=== PATIENT | female | born 2000 | race African-American/Black ===

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

== ENCOUNTER → 2019-01-15 | Outpatient (REF) | payer OTHER ==
[~2019-01-15] MED LIST: CARV3.12 PO; ENAL2.5T PO
[2019-01-15 17:51] LABS: ALBUMIN 3.9 GM/DL (3.2-5.2); ALT/SGPT 16 U/L (12-78); BILIRUBIN,TOTAL 0.3 MG/DL (0.2-1.0); BLOOD UREA NITROGEN 6 MG/DL (7-18); CALCIUM LEVEL 9.3 MG/DL (8.5-10.1); CARBON DIOXIDE LEVEL 29 MEQ/L (21-32); CHLORIDE LEVEL 108 MEQ/L (98-107); CHOLESTEROL LEVEL 181 MG/DL (<200); CHOLESTEROL RISK RATIO 4.022 (<5); CREATININE FOR GFR 0.78 MG/DL (0.55-1.30); FREE T4 0.84 NG/DL (0.78-1.33); GLUCOSE, FASTING 81 MG/DL (70-100); HDL CHOLESTEROL 45 MG/DL (>40); LDL CHOLESTEROL 102 MG/DL (<100); NON-HDL-C 136 MG/DL; POTASSIUM SERUM 3.8 MEQ/L (3.5-5.1); SODIUM LEVEL 143 MEQ/L (136-145); TOTAL 25(OH) VITAMIN D 9.5 NG/ML (30.0-100.0); TOTAL PROTEIN 7.3 GM/DL (6.4-8.2); TRIGLYCERIDES LEVEL 171 MG/DL (<150)
[2019-01-15 18:05] LABS: BASO % 0.5 % (0.0-1.0); EOS # 0.1 10^3/uL (0.0-0.50); EOS % 1.1 % (0.0-3.0); HEMATOCRIT 38.6 % (36.0-47.0); HEMOGLOBIN 11.6 g/dl (12.0-15.5); LYMPH # 2.5 10^3/uL (1.5-6.5); LYMPH % 37.9 % (24.0-44.0); MEAN CORPUSCULAR HEMOGLOBIN 20.9 pg (27.0-33.0); MEAN CORPUSCULAR HGB CONC 30.1 g/dl (32.0-36.5); MEAN CORPUSCULAR VOLUME 69.5 fl (80.0-96.0); MONO # 0.3 10^3/uL (0.0-0.8); MONO % 4.5 % (0.0-5.0); NEUTROPHILS # 3.7 10^3/uL (1.8-7.7); NEUTROPHILS % 55.8 % (36.0-66.0); PLATELET COUNT, AUTOMATED 350 10^3/uL (150-450); RED BLOOD COUNT 5.55 10^6/uL (4.00-5.40); WHITE BLOOD COUNT 6.7 10^3/uL (4.0-10.0)
[2019-01-15 20:10] LABS: HEMOGLOBIN A1c 5.2 %
[2019-01-17 14:17] LABS: ANTINUCLEAR ANTIBODIES DIRECT Negative (Negative)
== END ==
LOC: M LAB REF 16:52
PROVIDERS: ATTEND Nurse Practitioner Adult Health
DX: Z13.9 Encounter for screening, unspecified (principal)

== ENCOUNTER 2019-12-17 14:49 | Emergency (ER) | payer OTHER ==
[~2019-12-17] VITALS: Ht 157.5 cm; Wt 75.7 kg
[~2019-12-17 14:49] MED LIST changes: +ENAL1TAB46 PO; -ENAL2.5T PO
[2019-12-17 16:35] LABS: BASO % 0.6 % (0.0-1.0); EOS % 0.4 % (0.0-3.0); HEMATOCRIT 36.4 % (36.0-47.0); HEMOGLOBIN 11.1 g/dl (12.0-15.5); LYMPH % 41.7 % (24.0-44.0); MEAN CORPUSCULAR HEMOGLOBIN 20.4 pg (27.0-33.0); MEAN CORPUSCULAR HGB CONC 30.5 g/dl (32.0-36.5); MONO # 0.3 10^3/uL (0.0-0.8); MONO % 4.7 % (0.0-5.0); NEUTROPHILS # 3.8 10^3/uL (1.5-8.5); NEUTROPHILS % 52.5 % (36.0-66.0); PLATELET COUNT, AUTOMATED 279 10^3/uL (150-450); RED BLOOD COUNT 5.43 10^6/uL (4.00-5.40); WHITE BLOOD COUNT 7.2 10^3/uL (4.0-10.0)
[2019-12-17 17:07] LABS: ALBUMIN 4.1 GM/DL (3.2-5.2); ALT/SGPT 15 U/L (12-78); BILIRUBIN,DIRECT 0.1 MG/DL (0.0-0.2); BILIRUBIN,TOTAL 0.4 MG/DL (0.2-1.0); CK-MB VALUE MASS 1.3 NG/ML (<3.6); CPK CREATINE PHOSPHOKINASE 157 U/L (26-192); FREE T4 0.91 NG/DL (0.78-1.33); LIPASE 90 U/L (73-393); MB/CK RELATIVE INDEX 0.83 (< OR =4); TOTAL PROTEIN 7.4 GM/DL (6.4-8.2); TROPONIN I < 0.02 NG/ML (< 0.10)
--- NOTE | 2019-12-17 17:53 | ECGEPIP ---
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
[2019-12-17 18:11] VITALS: BP 111/69
--- NOTE | 2019-12-18 03:14 | REP ---
TWO-VIEW CHEST: REASON: Chest pain. COMPARISON: No priors. FINDINGS: The superior mediastinal structures are midline. The cardiac silhouette is unremarkable in size, shape, and position. The diaphragmatic surfaces of the lungs are regular, and the costophrenic angles are clear. The pulmonary khalil are clear. The imaged osseous structures are intact. IMPRESSION: There is no acute cardiopulmonary disease. Electronically Signed by Pablo Priest DO 12/18/2019 08:11 A
== END 2019-12-17 18:16 | disposition home or self-care (01) ==
LOC: M ED 14:49
DX: S29.011A Strain of muscle and tendon of front wall of thorax, initial encounter (principal); X50.0XXA Overexertion from strenuous movement or load, initial encounter; Y92.9 Unspecified place or not applicable; Y93.9 Activity, unspecified; Y99.9 Unspecified external cause status; I10 Essential (primary) hypertension; Z79.899 Other long term (current) drug therapy

== ENCOUNTER 2020-03-25 14:27 | Observation (INO) | payer OTHER ==
[~2020-03-25] VITALS: Ht 157.5 cm; Wt 80.6 kg
[2020-03-25] MEDS ORDERED: ENAL-36 PO (14:37)
[2020-03-25] MEDS ORDERED: NS 500 ML IV ONE (16:00)
[2020-03-25 16:11] LABS: BASO % 0.4 % (0.0-1.0); EOS # 0.1 10^3/uL (0.0-0.5); EOS % 0.9 % (0.0-3.0); HEMATOCRIT 37.8 % (36.0-47.0); LYMPH # 3.1 10^3/uL (1.5-5.0); LYMPH % 38.5 % (24.0-44.0); MEAN CORPUSCULAR HEMOGLOBIN 19.7 pg (27.0-33.0); MEAN CORPUSCULAR HGB CONC 29.1 g/dl (32.0-36.5); MEAN CORPUSCULAR VOLUME 67.7 fl (80.0-96.0); MONO # 0.5 10^3/uL (0.0-0.8); MONO % 5.6 % (0.0-5.0); NEUTROPHILS # 4.4 10^3/uL (1.5-8.5); NEUTROPHILS % 54.4 % (36.0-66.0); PLATELET COUNT, AUTOMATED 326 10^3/uL (150-450); RED BLOOD COUNT 5.58 10^6/uL (4.00-5.40); WHITE BLOOD COUNT 8.1 10^3/uL (4.0-10.0)
--- NOTE | 2020-03-25 16:27 | REPVR ---
PROCEDURE INFORMATION: Exam: XR Chest, 1 View Exam date and time: 03/25/2020 3:29 PM Age: 19 years old Clinical indication: Other: Syncope; Additional info: Syncope, HX enlarged heart TECHNIQUE: Imaging protocol: XR of the chest Views: 1 view. COMPARISON: CR Chest, 2 view PA, Lat 12/17/2019 4:55 PM FINDINGS: Lungs: Both lungs are well-aerated. Pleural space: Unremarkable. No pleural effusion. No pneumothorax. Heart/Mediastinum: Comparison to the previous chest radiograph from 12/17/2019 shows a questionable mild interval enlargement of the heart. This is questionable, however I would recommend echocardiography for further evaluation. Bones/joints: Unremarkable. IMPRESSION: 1. Comparison to the previous chest radiograph from 12/17/2019 shows a questionable mild interval enlargement of the heart. This is questionable, however I would recommend echocardiography for further evaluation. 2. Both lungs are well-aerated. Electronically signed by: Reynaldo Diaz On 03/25/2020 16:27:25 PM
[2020-03-25 16:38] LABS: BLOOD UREA NITROGEN 13 MG/DL (7-18); CALCIUM LEVEL 8.5 MG/DL (8.5-10.1); CARBON DIOXIDE LEVEL 27 MEQ/L (21-32); CHLORIDE LEVEL 106 MEQ/L (98-107); CK-MB VALUE MASS 2.2 NG/ML (<3.6); CPK CREATINE PHOSPHOKINASE 177 U/L (26-192); CREATININE FOR GFR 0.71 MG/DL (0.55-1.30); FREE T4 0.85 NG/DL (0.78-1.33); GLUCOSE, FASTING 75 MG/DL (70-100); MAGNESIUM LEVEL 1.9 MG/DL (1.8-2.4); MB/CK RELATIVE INDEX 1.24 (< OR =4); NT-PRO BNP 97 PG/ML (<125); SODIUM LEVEL 139 MEQ/L (136-145); TROPONIN I < 0.02 NG/ML (< 0.10)
[2020-03-25] MEDS ORDERED: CARV12.5 PO (18:01)
[2020-03-25] MEDS ORDERED: ACETAMINOPHEN TAB 650MG DOSE (2X325MG) PO PRN (18:45)
--- NOTE | 2020-03-25 18:55 | HPEPDOC ---
[facility] Medical History & Physical Date of Admission Mar 25, 2020 Date of Service: Mar 25, 2020 History and Physical CHIEF COMPLAINT: Passing out HISTORY OF PRESENT ILLNESS: 19-year-old female with past medical history of h ypertension and cardiomegaly since childhood presents today after a syncopal episode at work witnessed by coworkers. She tells me that she was at work at the [employer] when she felt like she is about to pass out followed by a few seconds where she does not recollect what happened but her coworkers tell her she fell down but did not hit the floor as one of them was standing behind her and helped her. She regained consciousness within about 5 seconds and felt well afterwards. This has never happened before. She is unsure I might have happened but tells me she didn't eat or drink very much that day. PAST MEDICAL HISTORY: Cardiomegaly Hypertension PAST SURGICAL HISTORY: Denies any SOCIAL HISTORY: Denies alcohol use Denies tobacco use Denies illicit drug use FAMILY HISTORY: Denies any significant history of cardiac disease in her family ALLERGIES: Please see below. REVIEW OF SYSTEMS: Constitutional: No sweating or weight loss Eyes: No eye pain or acute blurred vision HENT: No complaints of headache or sore throat at this time but sometimes gets headaches after long shifts at work Cadiovascular: No Chest pain or palpitations Pulm: No SOB or cough Gastrointestinal: No N/V, no abdominal pain. Genitourinary: No dysuria or hematuria Musculoskeletal: No back pain or joint pain Skin: No rash or jaundice Neurological: No weakness. HOME MEDICATIONS: Please see below. PHYSICAL EXAMINATION: Constitutional: Awake and alert, in no apparent distress. Obese. ENT: Sclera are clear. Mucosa is moist. Respiratory: Lungs CTA bilaterally. No respiratory distress. No use of accesso ry muscles. Cardiovascular: RRR S1 and S2 are normal, no murmur Gastrointestinal: Abdomen is soft, non distended, non tender, BS present. Musculoskeletal: No edema. No joint deformities. RUE 5/5, LUE 5/5, BLE 5/5 Neurologic: No focal neurological deficit. Mental Status: A&O x3, normal affect Skin: Warm, dry LABORATORY DATA: See below. IMAGING: Chest x-ray 03/25/2020 impression: 1. Comparison to the previous chest radiograph from 12/17/2019 shows a questionable mild interval enlargement of the heart. This is questionable, however I would recommend echocardiography for further evaluation. MICROBIOLOGY: Please see below. ASSESSMENT/PLAN 19-year-old female with past medical history of hypertension and cardiomegaly since childhood presents today after a syncopal episode at work witnessed by coworkers. Admitted to medical unit for observation. # Syncope: could be related to anemia vs her hx of cardiomegaly vs vasovagal. Dr. Angeles was consulted from the emergency department and he recommended obtaining an echo and admitting the patient for observation. Echocardiogram. Telemetry. Orthostats. TSH ok. # History of cardiomegaly: Continue carvedilol. CXR questionable mild interval enlargement of the heart. Obtain echocardiogram. # Hypertension: Continue enalapril twice a day. Monitor and titrate. # Anemia: Hemoglobin 11 on admission. Reports heavy menses. Follow-up outpat ient. 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 Vital Signs Vital Signs Date Time Temp Pulse Resp B/P (MAP) Pulse Ox O2 Delivery O2 Flow Rate FiO2 03/25/20 16:42 81 112/75 (87) 89 120/83 (95) 92 131/88 (102) 03/25/20 14:29 97.8 17 100 Room Air Laboratory Data Labs 24H Laboratory Tests 2 03/25/20 15:42: Immature Granulocyte % (Auto) 0.2, Neutrophils (%) (Auto) 54.4, Lymphocytes (%) (Auto) 38.5, Monocytes (%) (Auto) 5.6H, Eosinophils (%) (Auto) 0.9, Basophils (%) (Auto) 0.4, Neutrophils # (Auto) 4.4, Lymphocytes # (Auto) 3.1, Monocytes # (Auto) 0.5, Eosinophils # (Auto) 0.1, Basophils # (Auto) 0.0, Nucleated Red Blood Cells % (auto) 0.0, D-Dimer, Quantitative 325.13, Anion Gap 6L, Calcium Level 8.5, Magnesium Level 1.9, Total Creatine Kinase 177, Creatine Kinase MB 2.2, Creatine Kinase MB Relative Index 1.24, Troponin I < 0.02, GA-Dmw-A-Type Natriuretic Peptide 97, Thyroid Stimulating Hormone (TSH) 2.140, Free Thyroxine 0.85 CBC/BMP Laboratory Tests 03/25/20 15:42 Home Medications Scheduled Carvedilol (Carvedilol) 12.5 Mg Tablet, 12.5 MG PO DAILY Enalapril Maleate (Enalapril Maleate) 10 Mg Tablet, 15 MG PO BID Allergies Coded Allergies: No Known Allergies (Verified , 08/26/04) A-FIB/CHADSVASC A-FIB History Current/History of A-Fib/PAF?: No KOMAL SELLERS MD Mar 25, 2020 18:55
[2020-03-25 21:10] VITALS: BP 129/89
[2020-03-25] MEDS: ENALAPRIL MALEATE 5 MG TAB PO SCH (22:18)
[2020-03-26 05:00] VITALS: BP_SYST 112; BP_SYST 116; BP_SYST 118; BP_DIAS 58; BP_DIAS 60
[2020-03-26 06:00] VITALS: BP 112/70
[2020-03-26 06:11] LABS: HEMATOCRIT 33.6 % (36.0-47.0); HEMOGLOBIN 10.1 g/dl (12.0-15.5); MEAN CORPUSCULAR HEMOGLOBIN 20.1 pg (27.0-33.0); MEAN CORPUSCULAR HGB CONC 30.1 g/dl (32.0-36.5); MEAN CORPUSCULAR VOLUME 66.8 fl (80.0-96.0); PLATELET COUNT, AUTOMATED 285 10^3/uL (150-450); RED BLOOD COUNT 5.03 10^6/uL (4.00-5.40); WHITE BLOOD COUNT 7.5 10^3/uL (4.0-10.0)
[2020-03-26 06:35] LABS: BLOOD UREA NITROGEN 10 MG/DL (7-18); CALCIUM LEVEL 8.5 MG/DL (8.5-10.1); CARBON DIOXIDE LEVEL 24 MEQ/L (21-32); CHLORIDE LEVEL 109 MEQ/L (98-107); CREATININE FOR GFR 0.61 MG/DL (0.55-1.30); GLUCOSE, FASTING 80 MG/DL (70-100); POTASSIUM SERUM 3.8 MEQ/L (3.5-5.1); SODIUM LEVEL 138 MEQ/L (136-145)
--- NOTE | 2020-03-26 07:51 | IPNPDOC ---
Text Note Date of Service The patient was seen on 03/26/20. NOTE Subjective: Patient was seen and examined this morning. She tells me she's f eeling well and has not had any dizzy spells or past outpatient studies being admitted. She denies any blurry vision or headaches no chest pain or shortness of breath. Nurse reports no overnight events. Echo was done today Objective: Constitutional: Awake and alert, in no apparent distress. Obese. ENT: Sclera are clear. Mucosa is moist. Respiratory: Lungs CTA bilaterally. No respiratory distress. No use of accessory muscles. Cardiovascular: RRR S1 and S2 are normal, no murmur Gastrointestinal: Abdomen is soft, non distended, non tender, BS present. Musculoskeletal: No edema. No joint deformities. RUE 5/5, LUE 5/5, BLE 5/5 Neurologic: No focal neurological deficit. Mental Status: A&O x3, normal affect Skin: Warm, dry Assessment/plan: 19-year-old female with past medical history of hypertension and cardiomegaly since childhood presents today after a syncopal episode at work witnessed by coworkers. Admitted to medical unit for observation. # Syncope: Most likely due to anemia as she reports heavy menses lasting up to 8 days and using an entire pack of pads. Hemoglobin is 10.1 at time of discharge. I started her on by mouth iron daily. I recommended that she follow-up with a supervisor home restoration service as well as a primary care doctor which she currently does not have to explore possibility of starting OCPs to regulate her menstrual cycle. TSH was okay orthostats were negative. EKG was normal sinus rhythm. I discussed the results of the echocardiogram with Dr. Angeles cardiology which was normal with no structural findings to explain syncope. # History of cardiomegaly: On carvedilol. CXR questionable mild interval enlargement of the heart. Echocardiogram per Dr. Angeles does not reveal much or megaly. # Hypertension: Continue enalapril twice a day. Monitor and titrate. I recom mended the patient lives on modifications given her young age. Needs to lose weight. Needs to have good close follow-up with primary care once discharged. # Anemia: Likely from heavy menses. Follow-up outpatient. Started iron by mouth VS,Fishbone, I+O VS, Fishbone, I+O Laboratory Tests 03/25/20 15:42 03/26/20 05:49 Vital Signs Date Time Temp Pulse Resp B/P (MAP) Pulse Ox O2 Delivery O2 Flow Rate FiO2 03/26/20 06:00 98.1 89 18 112/70 (84) 99 Room Air I&O- Last 24 Hours up to 6 AM 03/26/20 06:00 Intake Total 400 ml Output Total 0 ml Balance 400 ml KOMAL SELLERS MD Mar 26, 2020 07:51
--- NOTE | 2020-03-26 08:28 | ECGEPIP ---
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
[2020-03-26] MEDS ORDERED: ENOXAPARIN 40MG/0.4ML SYRINGE (J1650 PER 10MG) SC SCH (09:00)
[2020-03-26] MEDS ORDERED: FERROUS SULFATE 325MG TAB PO SCH (09:00)
[2020-03-26] MEDS ORDERED: CARVedilol 12.5 MG TAB PO SCH (09:00)
[2020-03-26 09:50] VITALS: BP 124/81
[2020-03-26] MEDS: ENALAPRIL MALEATE 5 MG TAB PO SCH (09:50)
[2020-03-26 14:00] VITALS: BP 131/86
[2020-03-26] MEDS ORDERED: FERR325T18 PO (17:37)
--- NOTE | 2020-03-26 20:21 | ECGEPIP ---
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 Order Number: [id number] Reading MD: Josy Perkins Measurements Intervals [place] Rate: 85 P: 62 W[place]: 184 QRS: 11 QRSD: 94 T: 13 QT: 387 QTc: 461 Interpretive Statements SINUS RHYTHM WITH SINUS ARRHYTHMIA NSTTW abnormalities INCREASED RATE 12/17/19 Electronically Signed on 03-26-2020 20:21:30 EDT by Josy Perkins
--- NOTE | 2020-03-29 07:43 | ECHO ---
DATE OF PROCEDURE: 03/26/2020 Age: 19 Gender: Female Height: 62 inches Weight: 178 pounds Body surface area: 1.83 m2 PATIENT LOCATION: Inpatient, Room 4205. REFERRING PHYSICIAN: Osmar Dave MD. INDICATION: Syncope. MEASUREMENTS: 2D Measurements: RV 3.7 cm LV 5.5 cm Septum 0.9 cm Posterior wall 0.9 cm Aortic Root 2.8 cm LA 3.7 cm LVEF 65% Doppler Measurements: AV 1.26 m/s LVOT 0.8 m/s LVOT diameter 2.0 cm MV-E 111, A 66, E/A ratio 1.7 Early mitral deceleration time 153 m/s E prime medial 9.7, A prime medial 6, E prime lateral 16 PV 1.0 m/s Pulmonary artery acceleration time 110 m/s RVSP 30 mmHg IVC 1.6 cm COMMENTS: Normal sinus rhythm without intraventricular conduction disturbance. M-mode and two-dimensional echocardiography was performed with pulse, continuous wave, color flow, and tissue Doppler studies. Normal left ventricular size and wall thickness and wall motion. Left atrial size upper limits of normal with currently normal Doppler assessment of left ventricular (LV) diastolic function and estimated mean left atrial pressure. Normal right heart chamber sizes and motion with current estimated pulmonary artery pressure upper limits of normal. Normal inferior vena cava (IVC) size and collapse against an elevated central venous pressure. Normal aortic dimensions. Normal appearing and functioning aortic valve. 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 Normal appearing tricuspid valve with mild insufficiency. No apparent intracardiac mass or pericardial effusion. A preliminary report of this study was relayed directly to Dr. Dave within an hour of its completion. [facility]S HOSPITALAlonso
== END 2020-03-26 18:21 | disposition home or self-care (01) ==
LOC: M ED 14:27 → M ED INP 14:28 → ENRESERVDT 20:05 → ENRESERVTM 20:05 → M MSPAV 21:06
PROVIDERS: ADMIT Family Medicine; ATTEND Family Medicine
DX: R55 Syncope and collapse (principal); D64.9 Anemia, unspecified; I10 Essential (primary) hypertension; I51.7 Cardiomegaly; Z79.899 Other long term (current) drug therapy
CPT/HCPCS: 36415; 71045; 80048; 82550; 82553; 83735; 83880; 84439; 84443; 85025; 85027; 85379; 93005; 93041; 93306; 96372; 96374; 97161; 99285; J1650

== ENCOUNTER 2020-06-18 15:14 | Emergency (ER) | payer OTHER, SELFPAY ==
[~2020-06-18] VITALS: Ht 157.5 cm; Wt 77.3 kg
[~2020-06-18 15:14] MED LIST changes: +CARV12.5 PO; +ENAL-36 PO; +FERR325T18 PO
--- OUTSIDE RECORDS SUMMARY | 2020-06-18 15:21 | CCD ---
Author Author [facility] Organization [facility] Address Unknown Phone Unavailable Care Team Providers Care Bridal Consultant Name Role Phone Shandra MedinaP DIRECTOR OF RESOURCE DEVELOPMENT Unavailable Unavailable Medina, F Shandra DIRECTOR OF RESOURCE DEVELOPMENT-BC Unavailable Unavailable Adam, F Shandra DIRECTOR OF RESOURCE DEVELOPMENT-BC Unavailable Unavailable Adam F Shandra DIRECTOR OF RESOURCE DEVELOPMENT-BC Unavailable Unavailable Adam F Shandra DIRECTOR OF RESOURCE DEVELOPMENT-BC Unavailable Unavailable Adam F Shandra DIRECTOR OF RESOURCE DEVELOPMENT-BC Unavailable Unavailable Adam F Shandra DIRECTOR OF RESOURCE DEVELOPMENT-BC Unavailable Unavailable Medina, F Shandra DIRECTOR OF RESOURCE DEVELOPMENT-BC Unavailable Unavailable Adam, F Shandra DIRECTOR OF RESOURCE DEVELOPMENT-BC Unavailable Unavailable Medina, F Shandra DIRECTOR OF RESOURCE DEVELOPMENT-BC Unavailable Unavailable Medina, F Shandra DIRECTOR OF RESOURCE DEVELOPMENT-BC Unavailable Unavailable Medina, F Shandra DIRECTOR OF RESOURCE DEVELOPMENT-BC Unavailable Unavailable Medina, F Shandra DIRECTOR OF RESOURCE DEVELOPMENT-BC Unavailable Unavailable Medina, F Shandra DIRECTOR OF RESOURCE DEVELOPMENT-BC Unavailable Unavailable Medina, F Shandra DIRECTOR OF RESOURCE DEVELOPMENT-BC Unavailable Unavailable Medina, F Shandra DIRECTOR OF RESOURCE DEVELOPMENT-BC Unavailable Unavailable Medina, F Shnadra DIRECTOR OF RESOURCE DEVELOPMENT-BC Unavailable Unavailable Medina, F Shandra DIRECTOR OF RESOURCE DEVELOPMENT-BC Unavailable Unavailable Medina, F Shandra DIRECTOR OF RESOURCE DEVELOPMENT-BC Unavailable Unavailable Adam, F Shandra DIRECTOR OF RESOURCE DEVELOPMENT-BC Unavailable Unavailable Adam, F Shandra DIRECTOR OF RESOURCE DEVELOPMENT-BC Unavailable Unavailable Adam, F Shandra DIRECTOR OF RESOURCE DEVELOPMENT-BC Unavailable Unavailable Adam, F Shandra DIRECTOR OF RESOURCE DEVELOPMENT-BC Unavailable Unavailable Re-disclosure Warning The records that you are about to access may contain information from federally-assisted alcohol or drug abuse programs. If such information is present, then the following federally mandated warning applies: This information has been disclosed to you from records protected by federal confidentiality rules (42 CFR part 2). The federal rules prohibit you from making any further disclosure of this information unless further disclosure is expressly permitted by the written consent of the person to whom it pertains or as otherwise permitted by 42 CFR part 2. A general authorization for the release of medical or other information is NOT sufficient for this purpose. The Federal rules restrict any use of the information to criminally investigate or prosecute any alcohol or drug abuse patient.The records that you are about to access may contain highly sensitive health information, the redisclosure of which is protected by Article 27-F of the [facility] Public Health law. If you continue you may have access to information: Regarding HIV / AIDS; Provided by facilities licensed or operated by the [facility] Office of Mental Health; or Provided by the [facility] Office for People With Developmental Disabilities. If such information is present, then the following [facility] mandated warning applies: This information has been disclosed to you from confidential records which are protected by state law. State law prohibits you from making any further disclosure of this information without the specific written consent of the person to whom it pertains, or as otherwise permitted by law. Any unauthorized further disclosure in violation of state law may result in a fine or [place] [facility] sentence or both. A general authorization for the release of medical or other information is NOT sufficient authorization for further disc losure. Encounters Encounter Providers Location Date Indications Data Source(s ) Outpatient Attender: JACOBY DOZIER 03/26/2020 10:07:00 AM EDT [facility] Outpatient Attender: Shandra DOS SANTOS 01/22/2020 01: 28:01 PM EDT [facility] Outpatient Attender: Shandra TODD 12/28/2019 10: 02:01 AM EDT [facility] Outpatient Attender: JACOBY DOZIER FP 12/28/2019 10:02:00 AM EDT [facility] Outpatient Attender: Shandra Adam APONTEBC FP 12/23/2019 11: 36:02 AM EDT [facility] Outpatient Attender: JACOBY Medina JACOBY FP 12/23/2019 11:36:[address] [facility] Outpatient Attender: Shandra Adam APONTEBC FP 12/19/2019 01: 07:00 PM EDT [facility] Outpatient Attender: JACOBY DOZIER FP 11/11/2019 07:33:01 PM EDT [facility] Outpatient Attender: JACOBY DOZIER FP 10/23/2019 09:01:01 PM EDT [facility] Outpatient Attender: JACOBY DOZIER FP 10/02/2019 09:01:01 PM EDT [facility] Outpatient Attender: Shandra Adam DOS SANTOS FP 08/01/2019 02: 39:00 PM EST [facility] Outpatient Attender: JACOBY DOZIER FP 06/09/2019 08:06:01 AM EST [facility] Outpatient Attender: JACOBY DOZIER FP 05/09/2019 10:57:01 AM EST [facility] Outpatient Attender: JACOBY DOZIER FP 05/08/2019 11:46:01 AM EST [facility] Outpatient Attender: JACOBY DOZIER FP 04/29/2019 10:37:00 AM EST [facility] Insurance Providers Payer name Policy type / Coverage type Policy ID Covered constitution party ID Covered constitution party's relationship to [place] Policy [place] Plan Information SELF PAY ONLY [id number] SP [id number] [place] [address](MCAID) O [id number] S [id number] [employer] [facility] [id number] SP [id number] Managed Care - [facility] Community Plan P [id number] S [id number] Medicaid S [id number] S [id number] [employer] COMMUNITY PLAN [facility] [id number] SP [id number] Managed Care - [facility] Community Plan P [id number] S [id number] Managed Care - Community Plan [facility] P [id number] S [id number] Self Pay P UNAVAILABLE S [place] BLE [employer] COMMUNITY PLAN [facility] [id number] SP [id number] SELF PAY ONLY [id number] SP [id number] Managed Care - Community [facility] S [id number] S [id number] Medicaid P [id number] S [id number] MEDICAID [id number] SP [id number] Medicaid P UNAVAILABLE S [place] BLE Results ID Date Data Source [id number] 12/17/2019 04:18:00 PM EDT [facility] Name Value Range Interpretation Code Description Data Evelin rce(s) Supporting Document(s) T4, FREE 0.91 ng/dL 0.78-1.33 N [facility] y Health TSH 1.000 microintl units/mL 0.463-3.98 N [facility] ID Date Data Source [id number] 12/17/2019 04:18:00 PM EDT [facility] Name Value Range Interpretation Code Description Data Evelin rce(s) Supporting Document(s) HCT 36.4 % 36.0-47.0 N [facility] HGB 11.1 g/dL 12.0-15.5 L [facility] MCH 30.5 G/DL pg 32.0-36.5 L [facility] sammi [facility] MCHC 20.4 PG % 27.0-33.0 L [facility] PLATELETS 279 10 10*3/mm3 150-450 N [facility] RBC 5.43 10 10*6/mm3 4.00-5.40 H [facility] RDW 14.9 % 11.5-14.5 H [facility] WBC TOTAL 7.2 4.0-10.0 N [facility] Procedure
[2020-06-18 16:04] LABS: BASO % 0.2 % (0.0-1.0); EOS # 0.1 10^3/uL (0.0-0.5); EOS % 0.7 % (0.0-3.0); HEMOGLOBIN 11.1 g/dl (12.0-15.5); LYMPH # 2.6 10^3/uL (1.5-5.0); LYMPH % 31.5 % (24.0-44.0); MEAN CORPUSCULAR HEMOGLOBIN 20.7 pg (27.0-33.0); MEAN CORPUSCULAR VOLUME 68.9 fl (80.0-96.0); MONO # 0.4 10^3/uL (0.0-0.8); MONO % 4.3 % (0.0-5.0); NEUTROPHILS # 5.1 10^3/uL (1.5-8.5); NEUTROPHILS % 63.1 % (36.0-66.0); PLATELET COUNT, AUTOMATED 303 10^3/uL (150-450); RED BLOOD COUNT 5.37 10^6/uL (4.00-5.40); WHITE BLOOD COUNT 8.1 10^3/uL (4.0-10.0)
[2020-06-18 16:33] LABS: BLOOD UREA NITROGEN 8 MG/DL (7-18); CALCIUM LEVEL 9.1 MG/DL (8.5-10.1); CARBON DIOXIDE LEVEL 25 MEQ/L (21-32); CHLORIDE LEVEL 105 MEQ/L (98-107); CREATININE FOR GFR 0.74 MG/DL (0.55-1.30); GLOMERULAR FILTRATION RATE > 60.0 (>60); GLUCOSE, FASTING 87 MG/DL (70-100); NT-PRO BNP 225 PG/ML (<125); POTASSIUM SERUM 3.7 MEQ/L (3.5-5.1); SODIUM LEVEL 138 MEQ/L (136-145)
--- OUTSIDE RECORDS SUMMARY | 2020-06-18 16:53 | CCD ---
Author Author [facility] Organization [facility] Address Unknown Phone Unavailable Care Team Providers Care Sand Mixer Operator Name Role Phone Shandra MedinaP FINGER WAVER Unavailable Unavailable Medina, F Shandra FINGER WAVER-BC Unavailable Unavailable Adam, F Shandra FINGER WAVER-BC Unavailable Unavailable Adam F Shandra FINGER WAVER-BC Unavailable Unavailable Adam F Shandra FINGER WAVER-BC Unavailable Unavailable Adam F Shandra FINGER WAVER-BC Unavailable Unavailable Adam F Shandra FINGER WAVER-BC Unavailable Unavailable Medina, F Shandra FINGER WAVER-BC Unavailable Unavailable Adam, F Shandra FINGER WAVER-BC Unavailable Unavailable Medina, F Shandra FINGER WAVER-BC Unavailable Unavailable Medina, F Shandra FINGER WAVER-BC Unavailable Unavailable Medina, F Shandra FINGER WAVER-BC Unavailable Unavailable Medina, F Shandra FINGER WAVER-BC Unavailable Unavailable Medina, F Shandra FINGER WAVER-BC Unavailable Unavailable Medina, F Shandra FINGER WAVER-BC Unavailable Unavailable Medina, F Shandra FINGER WAVER-BC Unavailable Unavailable Medina, F Shandra FINGER WAVER-BC Unavailable Unavailable Medina, F Shandra FINGER WAVER-BC Unavailable Unavailable Medina, F Shandra FINGER WAVER-BC Unavailable Unavailable Adam, F Shandra FINGER WAVER-BC Unavailable Unavailable Adam, F Shandra FINGER WAVER-BC Unavailable Unavailable Adam, F Shandra FINGER WAVER-BC Unavailable Unavailable Adam, F Shandra FINGER WAVER-BC Unavailable Unavailable Re-disclosure Warning The records that [...] is protected by Article 27-F of the [facility] Public Health law. If you continue you may have access to information: Regarding HIV / AIDS; Provided by facilities licensed or operated by the [facility] Office of Mental Health; or Provided by the [facility] Office for People With Developmental Disabilities. If such information is present, then the following [facility] mandated warning applies: This information has [...] Attender: JACOBY DOZIER 03/26/2020 10:07:00 AM EDT [facility] Outpatient Attender: Shandra DOS SANTOS 01/22/2020 01: 28:01 PM EDT [facility] Outpatient Attender: Shandra TODD 12/28/2019 10: 02:01 AM EDT [facility] Outpatient Attender: JACOBY DOZIER FP 12/28/2019 10:02:00 AM EDT [facility] Outpatient Attender: Shandra Adam APONTEBC FP 12/23/2019 11: 36:02 AM EDT [facility] Outpatient Attender: JACOBY Medina JACOBY FP 12/23/2019 11:36:02 AM EDT [facility] Outpatient Attender: Shandra Adam APONTEBC FP 12/19/2019 01: 07:00 PM EDT [facility] Outpatient Attender: JACOBY DOZIER FP 11/11/2019 07:33:01 PM EDT [facility] Outpatient Attender: JACOBY DOZIER FP 10/23/2019 09:01:01 PM EDT [facility] Outpatient Attender: JACOBY DOZIER FP 10/02/2019 09:01:01 PM EDT [facility] Outpatient Attender: Shandra Adam DOS SANTOS FP 08/01/2019 02: 39:00 PM EST [facility] Outpatient Attender: JACOBY DOZIER FP 06/09/2019 08:06:01 AM EST [facility] Outpatient Attender: JACOBY DOZIER FP 05/09/2019 10:57:01 AM EST [facility] Outpatient Attender: JACOBY DOZIER FP 05/08/2019 11:46:01 AM EST [facility] Outpatient Attender: JACOBY DOZIER FP 04/29/2019 10:37:00 AM EST [facility] Insurance Providers Payer name Policy type / Coverage type Policy ID Covered constitution party ID Covered constitution party's relationship to [place] Policy [place] Plan Information [facility] COMMUNITY PLAN [facility] [id number] SP [id number] SELF PAY ONLY [id number] SP [id number] [facility]) O [id number] S [id number] [employer] COMMUNITY PLAN [facility] [id number] SP [id number] Managed Care - [facility] Community Plan P [id number] S [id number] Medicaid S [id number] S [id number] Managed Care - [facility] Community Plan P [id number] S [id number] Managed Care - Community Plan [facility] P [id number] S [id number] Self Pay P UNAVAILABLE S UNAVAILA BLE [employer] COMMUNITY PLAN [facility] [id number] SP [id number] SELF PAY ONLY [id number] SP [id number] Managed Care - [facility] S [id number] S [id number] Medicaid P [id number] S [id number] MEDICAID [id number] SP [id number] Medicaid P UNAVAILABLE S UNAVAILA BLE Results ID Date Data Source [id number] 12/17/2019 04:18:00 PM EDT [facility] Name Value Range Interpretation Code Description Data Evelin rce(s) Supporting Document(s) T4, FREE 0.91 ng/dL 0.78-1.[address] [facility] Health TSH 1.000 microintl units/mL 0.463-3.98 N [facility] ID Date Data Source [id number] 12/17/2019 04:18:00 PM EDT [facility] Name Value Range Interpretation Code Description Data Evelin rce(s) Supporting Document(s) HCT 36.4 % 36.0-47.0 N [facility] HGB 11.1 g/dL 12.0-15.5 L [facility] MCH 30.5 G/DL pg 32.0-36.5 L [facility] sammi [facility] MCHC 20.4 PG % 27.0-33.0 L [facility] PLATELETS 279 10 10*3/mm3 150-450 N [facility] RBC 5.43 10 10*6/mm3 4.00-5.40 H [facility] RDW 14.9 % 11.5-14.5 H [facility] WBC TOTAL 7.2 4.0-10.0 N [facility] Procedure
[2020-06-18 17:00] VITALS: BP 131/94
--- NOTE | 2020-06-18 18:20 | ECGEPIP ---
[facility] - ED Test Date: 2020-06-18 Pat Name: JAMISON GOODWIN Department: Room: - Gender: Female Actuarial Director: BRONSON : 2000 Requested By: Josy Perkins Order Number: [id number] Reading MD: Iraj Arreaga Measurements Intervals [place] Rate: 80 P: 62 CT: 184 QRS: 11 QRSD: 93 T: -6 QT: 378 QTc: 437 Interpretive Statements SINUS RHYTHM POOR R WAVE PROGRESSION NONSPECIFIC T WAVE ABNORMALITY(S) SIMILAR TO 03/26/20 Electronically Signed on 06-18-2020 18:19:48 EST by Iraj Arreaga
== END 2020-06-18 17:02 | disposition home or self-care (01) ==
LOC: M ED 15:14
DX: Z76.0 Encounter for issue of repeat prescription (principal); R42 Dizziness and giddiness; I10 Essential (primary) hypertension; Z79.899 Other long term (current) drug therapy

== ENCOUNTER 2020-07-02 02:05 | Emergency (ER) | payer OTHER ==
--- OUTSIDE RECORDS SUMMARY | 2020-07-02 02:11 | CCD ---
Author Author [facility] Organization [facility] Address Unknown Phone Unavailable Care Team Providers Care Ring Striker Name Role Phone Shandra MedinaP DIRECTOR FRAUD Unavailable Unavailable Medina, F Shandra DIRECTOR FRAUD-BC Unavailable Unavailable Adam F Shandra DIRECTOR FRAUD-BC Unavailable Unavailable Adam F Shandra DIRECTOR FRAUD-BC Unavailable Unavailable Adam F Shandra DIRECTOR FRAUD-BC Unavailable Unavailable Adam F Shandra DIRECTOR FRAUD-BC Unavailable Unavailable Adam F Shandra DIRECTOR FRAUD-BC Unavailable Unavailable Medina, F Shandra DIRECTOR FRAUD-BC Unavailable Unavailable Adam, F Shandra DIRECTOR FRAUD-BC Unavailable Unavailable Medina, F Shandra DIRECTOR FRAUD-BC Unavailable Unavailable Medina, F Shandra DIRECTOR FRAUD-BC Unavailable Unavailable Medina, F Shandra DIRECTOR FRAUD-BC Unavailable Unavailable Medina, F Shandra DIRECTOR FRAUD-BC Unavailable Unavailable Medina, F Shandra DIRECTOR FRAUD-BC Unavailable Unavailable Medina, F Shandra DIRECTOR FRAUD-BC Unavailable Unavailable Medina, F Shandra DIRECTOR FRAUD-BC Unavailable Unavailable Medina, F Shandra DIRECTOR FRAUD-BC Unavailable Unavailable Medina, F Shandra DIRECTOR FRAUD-BC Unavailable Unavailable Medina, F Shandra DIRECTOR FRAUD-BC Unavailable Unavailable Adam, F Shandra DIRECTOR FRAUD-BC Unavailable Unavailable Adam, F Shandra DIRECTOR FRAUD-BC Unavailable Unavailable Adam, F Shandra DIRECTOR FRAUD-BC Unavailable Unavailable Adam, F Shandra DIRECTOR FRAUD-BC Unavailable Unavailable Re-disclosure Warning The records that [...] is protected by Article 27-F of the [facility] Public Health law. If you continue you may have access to information: Regarding HIV / AIDS; Provided by facilities licensed or operated by the [facility] Office of Mental Health; or Provided by the [facility] Office for People With Developmental Disabilities. If such information is present, then the following [facility] mandated warning applies: This information has [...] law may result in a fine or mcc sentence or both. A general authorization for the release of medical or other information is NOT sufficient authorization for further disc losure. Encounters Encounter Providers Location Date Indications Data Source(s ) Outpatient Attender: JACOBY DOZIER 03/26/2020 10:07:00 AM EDT [facility] Outpatient Attender: Shandra DOS SANTOS 01/22/2020 01: 28:01 PM EDT [facility] Outpatient Attender: Shandra TODD 12/28/2019 10: 02:01 AM EDT [facility] Outpatient Attender: JACOBY DOZIER FP 12/28/2019 10:02:00 AM EDT [facility] Outpatient Attender: Shandra Adam APONTEBC FP 12/23/2019 11: 36:02 AM EDT [facility] Outpatient Attender: JACOBY Medina DIRECTOR FRAUD FP 12/23/2019 11:36:02 AM EDT [facility] Outpatient Attender: Shandra Adam APONTEBC FP 12/19/2019 01: 07:00 PM EDT [facility] Outpatient Attender: DIRECTOR FRAUDChaz DOZIER FP 11/11/2019 07:33:01 PM EDT [facility] Outpatient Attender: JACOBY Adam DOZIER FP 10/23/2019 09:01:01 PM EDT [facility] Outpatient Attender: JACOBY DOZIER FP 10/02/2019 09:01:01 PM EDT [facility] Outpatient Attender: Shandra Adam APONTEBC FP 08/01/2019 02: 39:00 PM EST [facility] Outpatient Attender: JACOBY DOZIER FP 06/09/2019 08:06:01 AM EST [facility] Outpatient Attender: JACOBY Adam LAIRDP FP 05/09/2019 10:57:01 AM EST [facility] Outpatient Attender: JACOBY LAIRDP FP 05/08/2019 11:46:01 AM EST [facility] Insurance Providers Payer name Policy type / Coverage type Policy ID Covered alliance party ID Covered alliance party's relationship to [place] Policy [place] Plan Information [facility] COMMUNITY PLAN [facility] [id number] SP [id number] SELF PAY ONLY [id number] SP [id number] [facility] O [id number] S [id number] [facility] COMMUNITY PLAN [facility] [id number] SP [id number] Managed Care - [facility] Community Plan P [id number] S [id number] Medicaid S [id number] S [id number] Managed Care - [facility] Community Plan P [id number] S [id number] Managed Care - Community Plan [facility] P [id number] S [id number] Self Pay P UNAVAILABLE S UNAVAILA BLE [facility] [id number] SP [id number] SELF PAY ONLY [id number] SP [id number] Managed Care - Community Plan [facility] S [id number] S [id number] Medicaid P [id number] S [id number] MEDICAID [id number] SP [id number] Medicaid P UNAVAILABLE S UNAVAILA BLE Results ID Date Data Source [id number] 12/17/2019 04:18:00 PM EDT [facility] Name Value Range Interpretation Code Description Data Evelin rce(s) Supporting Document(s) T4, FREE 0.91 ng/dL 0.78-1.33 N [facility] Health TSH 1.000 microintl units/mL 0.463-3.98 N [facility] ID Date Data Source [id number] 12/17/2019 04:18:00 PM EDT [facility] Name Value Range Interpretation Code Description Data Evelin rce(s) Supporting Document(s) HCT 36.4 % 36.0-47.0 N [facility] HGB 11.1 g/dL 12.0-15.5 L [facility] MCH 30.5 G/DL pg 32.0-36.5 L [facility] MCHC 20.4 PG % 27.0-33.0 L [facility] PLATELETS 279 10 10*3/mm3 150-450 N [facility] RBC 5.43 10 10*6/mm3 4.00-5.40 H [facility] RDW 14.9 % 11.5-14.5 H [facility] WBC TOTAL 7.2 4.0-10.0 N [facility] Procedure
[2020-07-02] MEDS ORDERED: NS 1,000 ML IV ONE (03:00)
--- OUTSIDE RECORDS SUMMARY | 2020-07-02 03:11 | CCD ---
Author Author [facility] Organization [facility] Address Unknown Phone Unavailable Care Team Providers Care Cementing Machine Operator Name Role Phone Shandra Medina REAL ESTATE INTERN Unavailable Unavailable Adam, Ling Shandra REAL ESTATE INTERN-BC Unavailable Unavailable Adam F Shandra REAL ESTATE INTERN-BC Unavailable Unavailable Adam, F Shandra REAL ESTATE INTERN-BC Unavailable Unavailable Adam F Shandra REAL ESTATE INTERN-BC Unavailable Unavailable Adam F Shandra REAL ESTATE INTERN-BC Unavailable Unavailable Adam F Shandra REAL ESTATE INTERN-BC Unavailable Unavailable Medina, F Shandra REAL ESTATE INTERN-BC Unavailable Unavailable Adam F Shandra REAL ESTATE INTERN-BC Unavailable Unavailable Medina, F Shandra REAL ESTATE INTERN-BC Unavailable Unavailable Medina, F Shandra REAL ESTATE INTERN-BC Unavailable Unavailable Medina, F Shandra REAL ESTATE INTERN-BC Unavailable Unavailable Medina, F Shandra REAL ESTATE INTERN-BC Unavailable Unavailable Medina, F Shandra REAL ESTATE INTERN-BC Unavailable Unavailable Medina, F Shandra REAL ESTATE INTERN-BC Unavailable Unavailable Meidna, F Shandra REAL ESTATE INTERN-BC Unavailable Unavailable Medina, F Shandra REAL ESTATE INTERN-BC Unavailable Unavailable Medina, F Shandra REAL ESTATE INTERN-BC Unavailable Unavailable Medina, F Shandra REAL ESTATE INTERN-BC Unavailable Unavailable Adam, F Shandra REAL ESTATE INTERN-BC Unavailable Unavailable Adam, F Shandra REAL ESTATE INTERN-BC Unavailable Unavailable Adam, F Shandra REAL ESTATE INTERN-BC Unavailable Unavailable Adam, F Shandra REAL ESTATE INTERN-BC Unavailable Unavailable Re-disclosure Warning The records that [...] is protected by Article 27-F of the [facility] Public Health law. If you continue you may have access to information: Regarding HIV / AIDS; Provided by facilities licensed or operated by the [facility] Office of Mental Health; or Provided by the [facility] Office for People With Developmental Disabilities. If such information is present, then the following [facility] mandated warning applies: This information has [...] law may result in a fine or custodial sentence or both. A general authorization for the release of medical or other information is NOT sufficient authorization for further disc losure. Encounters Encounter Providers Location Date Indications Data Source(s ) Outpatient Attender: JACOBY TODD 03/26/2020 10:07:00 AM EDT [facility] Outpatient Attender: Shandra DOS SANTOS 01/22/2020 01: 28:01 PM EDT [facility] Outpatient Attender: Shandra TODD 12/28/2019 10: 02:01 AM EDT [facility] Outpatient Attender: JACOBY TODD 12/28/2019 10:02:00 AM EDT [facility] Outpatient Attender: Shandra Adam DOZIER-BC FP 12/23/2019 11: 36:02 AM EDT [facility] Outpatient Attender: JACOBY Medina REAL ESTATE INTERN FP 12/23/2019 11:36:02 AM EDT [facility] Outpatient Attender: Shandra Medina JACOBY-BC FP 12/19/2019 01: 07:00 PM EDT [facility] Outpatient Attender: JACOBY Medina JACOBY FP 11/11/2019 07:33:01 PM EDT [facility] Outpatient Attender: JACOBY Medina REAL ESTATE INTERN FP 10/23/2019 09:01:01 PM EDT [facility] Outpatient Attender: JACOBY Medina JACOBY FP 10/02/2019 09:01:01 PM EDT [facility] Outpatient Attender: Shandra Adam DOZIER-BC FP 08/01/2019 02: 39:00 PM EST [facility] Outpatient Attender: JACOBY Adam DOZIER FP 06/09/2019 08:06:01 AM EST [facility] Outpatient Attender: JACOBY Medina REAL ESTATE INTERN FP 05/09/2019 10:57:01 AM EST [facility] Outpatient Attender: JACOBY Medina REAL ESTATE INTERN FP 05/08/2019 11:46:01 AM EST [facility] Insurance Providers Payer name Policy type / Coverage type Policy ID Covered republican ID Covered republican's relationship to [place] Policy [place] Plan Information [facility] COMMUNITY PLAN [facility] [place] [id number] SP [id number] SELF PAY ONLY [id number] SP [id number] [facility] O [id number] S [id number] FORMERLY [facility] COMMUNITY PLAN [facility] [id number] SP [id number] Managed Care - [facility] Community Plan P [id number] S [id number] Medicaid S [id number] S [id number] Managed Care - [facility] Community Plan P [id number] S [id number] Managed Care - Community Plan [facility] P [id number] S [id number] Self Pay P UNAVAILABLE S UNAVAILA BLE [facility] COMMUNITY PLAN [facility] [id number] SP [id number] SELF PAY ONLY [id number] SP [id number] Managed Care - Community Plan [facility] S [id number] S [id number] Medicaid P [id number] S [id number] MEDICAID [id number] SP [id number] Medicaid P UNAVAILABLE S UNAVAILA BLE Results ID Date Data Source [id number] 12/17/2019 04:18:00 PM EDT [facility] Name Value Range Interpretation Code Description Data Evelin rce(s) Supporting Document(s) T4, FREE 0.91 ng/dL 0.78-1.33 N [facility] y Health TSH 1.000 microintl units/mL 0.463-3.98 N [facility] ID Date Data Source [id number] 12/17/2019 04:18:00 PM EDT [facility] Name Value Range Interpretation Code Description Data Evelin rce(s) Supporting Document(s) HCT 36.4 % 36.0-47.0 N [facility] HGB 11.1 g/dL 12.0-15.5 L [facility] MCH 30.5 G/DL pg 32.0-36.5 L [facility] MCHC 20.4 PG % 27.0-33.0 L [facility] PLATELETS 279 10 10*3/mm3 150-450 N [facility] RBC 5.43 10 10*6/mm3 4.00-5.40 H [facility] RDW 14.9 % 11.5-14.5 H [facility] WBC TOTAL 7.2 4.0-10.0 N [facility] Procedure
[2020-07-02 05:35] VITALS: BP 114/78
== END 2020-07-02 06:16 | disposition home or self-care (01) ==
LOC: M ED 02:05
DX: F12.122 Cannabis abuse with intoxication with perceptual disturbance (principal); F10.129 Alcohol abuse with intoxication, unspecified
CPT/HCPCS: 84702; 96360; 99284; G0480

== ENCOUNTER 2021-09-25 20:54 | Emergency (ER) | payer OTHER ==
[~2021-09-25] VITALS: Ht 157.5 cm; Wt 80.3 kg
[2021-09-25 20:55] VITALS: BP 133/83
== END 2021-09-26 00:27 | disposition left against medical advice (07) ==
LOC: M ED 20:54
DX: Z53.21 Procedure and treatment not carried out due to patient leaving prior to being seen by health care provider (principal)

== ENCOUNTER → 2021-10-11 | Outpatient (REF) | payer OTHER | LOC: M LAB REF 16:34 | PROVIDERS: ATTEND Nurse Practitioner Family | DX: R11.2 Nausea with vomiting, unspecified (principal) ==

== ENCOUNTER → 2022-09-18 | Outpatient (REF) ==
[~2022-09-18] MED LIST changes: -ENAL-36 PO; +ENAL1TAB50 PO
== END ==
LOC: M EMP 08:39
PROVIDERS: ATTEND Family Medicine
DX: Z11.52 Encounter for screening for COVID-19 (principal)

== ENCOUNTER → 2022-09-25 | Outpatient (REF) | LOC: M EMP 09:17 | PROVIDERS: ATTEND Family Medicine | DX: Z11.52 Encounter for screening for COVID-19 (principal) ==

== ENCOUNTER → 2022-10-03 | Outpatient (REF) | LOC: M EMP 08:44 | PROVIDERS: ATTEND Family Medicine | DX: Z11.52 Encounter for screening for COVID-19 (principal) ==

== ENCOUNTER → 2022-10-09 | Outpatient (REF) | LOC: M EMP 11:16 | PROVIDERS: ATTEND Family Medicine | DX: Z11.52 Encounter for screening for COVID-19 (principal) ==

== ENCOUNTER → 2022-10-16 | Outpatient (REF) | LOC: M EMP 14:27 | PROVIDERS: ATTEND Family Medicine | DX: Z11.52 Encounter for screening for COVID-19 (principal) ==

== ENCOUNTER → 2022-10-23 | Outpatient (REF) | LOC: M EMP 11:50 | PROVIDERS: ATTEND Family Medicine | DX: Z11.52 Encounter for screening for COVID-19 (principal) ==

== ENCOUNTER → 2022-11-02 | Outpatient (REF) | LOC: M EMP 07:57 | PROVIDERS: ATTEND Family Medicine | DX: Z00.00 Encounter for general adult medical examination without abnormal findings (principal) ==

== ENCOUNTER → 2022-11-06 | Outpatient (REF) | LOC: M EMP 14:23 | PROVIDERS: ATTEND Family Medicine | DX: Z11.52 Encounter for screening for COVID-19 (principal) ==

== ENCOUNTER → 2023-07-11 | Outpatient (REF) | payer OTHER ==
[2023-07-11 18:36] LABS: BASO % 0.5 % (0.0-1.0); EOS # 0.1 10^3/uL (0.0-0.5); EOS % 0.7 % (0.0-3.0); HEMATOCRIT 37.1 % (36.0-47.0); HEMOGLOBIN 11.3 g/dl (12.0-15.5); LYMPH # 3.2 10^3/uL (1.5-5.0); LYMPH % 37.2 % (24.0-44.0); MEAN CORPUSCULAR HEMOGLOBIN 20.4 pg (27.0-33.0); MEAN CORPUSCULAR HGB CONC 30.5 g/dl (32.0-36.5); MONO # 0.6 10^3/uL (0.0-0.8); MONO % 6.5 % (2.0-8.0); NEUTROPHILS # 4.7 10^3/uL (1.5-8.5); PLATELET COUNT, AUTOMATED 337 10^3/uL (150-450); RED BLOOD COUNT 5.54 10^6/uL (4.00-5.40); WHITE BLOOD COUNT 8.5 10^3/uL (4.0-10.0)
[2023-07-11 18:52] LABS: ALBUMIN 3.8 G/DL (3.2-5.2); ALKALINE PHOSPHATASE 78 U/L (46-116); ALT/SGPT < 9 U/L (7.0-40); AST/SGOT 9 U/L (<34); BILIRUBIN,TOTAL 0.5 MG/DL (0.3-1.2); BLOOD UREA NITROGEN 11 MG/DL (9-23); CALCIUM LEVEL 9.4 MG/DL (8.5-10.1); CARBON DIOXIDE LEVEL 28 MMOL/L (20-31); CHLORIDE LEVEL 105 MMOL/L (98-107); CHOLESTEROL LEVEL 234 MG/DL (<200); CHOLESTEROL RISK RATIO 4.86 (<5); CREATININE FOR GFR 0.69 MG/DL (0.55-1.30); GLOMERULAR FILTRATION RATE > 60.0 (>60); GLUCOSE, FASTING 84 MG/DL (60-100); HDL CHOLESTEROL 48.1 MG/DL (>40); LDL CHOLESTEROL 168.5 MG/DL (<100); MAGNESIUM LEVEL 1.7 MG/DL (1.8-2.4); NON-HDL-C 185.9 MG/DL; POTASSIUM SERUM 4.3 MMOL/L (3.5-5.1); SODIUM LEVEL 138 MMOL/L (136-145); TOTAL PROTEIN 7.2 G/DL (5.7-8.2); TRIGLYCERIDES LEVEL 87 MG/DL (<150)
[2023-07-11 19:01] LABS: TOTAL 25(OH) VITAMIN D 10.4 NG/ML (20.0-100.0)
[2023-07-11 19:08] LABS: HEMOGLOBIN A1c 5.1 % (4.0-6.0)
[2023-07-11 19:26] LABS: HIV 1&2 SCREEN NEGATIVE (NEGATIVE)
[2023-07-11 19:33] LABS: HEPATITIS C VIRUS ABY INDEX 0.02 INDEX (<0.8)
== END ==
LOC: M LAB REF 18:00
PROVIDERS: ATTEND Physician Assistant
DX: Z11.9 Encounter for screening for infectious and parasitic diseases, unspecified (principal); R53.83 Other fatigue; E55.9 Vitamin D deficiency, unspecified; E66.9 Obesity, unspecified

== ENCOUNTER → 2023-07-13 | Outpatient (CLI) | payer OTHER | LOC: M PLARAD 15:10 | PROVIDERS: ATTEND Physician Assistant | DX: R41.3 Other amnesia (principal) ==

== ENCOUNTER → 2023-08-16 | Outpatient (REF) | payer OTHER ==
[2023-08-16 19:13] LABS: PERCENT SATURATION 14.7 % (13.2-45.0)
[2023-08-16 19:15] LABS: FERRITIN 39.8 NG/ML (7.3-270.7)
== END ==
LOC: M LAB REF 17:42
PROVIDERS: ATTEND Physician Assistant
DX: D64.9 Anemia, unspecified (principal)

== ENCOUNTER → 2023-11-05 | Outpatient (REF) | payer OTHER ==
[2023-11-05 17:45] LABS: CHOLESTEROL RISK RATIO 3.51 (<5); HDL CHOLESTEROL 42.1 MG/DL (>40); LDL CHOLESTEROL 89.5 MG/DL (<100); NON-HDL-C 105.9 MG/DL
== END ==
LOC: M LAB REF 16:51
PROVIDERS: ATTEND Pediatrics
DX: E78.5 Hyperlipidemia, unspecified (principal)

== ENCOUNTER → 2024-06-10 | Outpatient (REF) | payer OTHER | LOC: M LAB REF 15:57 | PROVIDERS: ATTEND Student in an Organized Health Care Education/Training Program | DX: B37.0 Candidal stomatitis (principal) ==

== ENCOUNTER → 2024-08-11 | Outpatient (REF) | payer OTHER | LOC: M LAB REF 17:33 | PROVIDERS: ATTEND Student in an Organized Health Care Education/Training Program | DX: Z11.1 Encounter for screening for respiratory tuberculosis (principal) ==